=== PATIENT | female | born 1950 | race Caucasian/White ===

== ENCOUNTER 2019-10-23 08:36 | Outpatient (CLI) | payer MEDICARE ==
[~2019-10-23 08:36] MED LIST: HYDR-4353 PO
== END 2019-10-23 10:20 | disposition home or self-care (01) ==
LOC: WOUND CARE 08:36 → EDSTATUS 11:20
PROVIDERS: ATTEND Nurse Practitioner
DX: T81.89XA Other complications of procedures, not elsewhere classified, initial encounter (principal); L98.492 Non-pressure chronic ulcer of skin of other sites with fat layer exposed; K43.5 Parastomal hernia without obstruction or gangrene; E66.9 Obesity, unspecified; Z79.899 Other long term (current) drug therapy; Z96.641 Presence of right artificial hip joint; M16.4 Bilateral post-traumatic osteoarthritis of hip; Z85.038 Personal history of other malignant neoplasm of large intestine; Z68.29 Body mass index [BMI] 29.0-29.9, adult; Z85.048 Personal history of other malignant neoplasm of rectum, rectosigmoid junction, and anus; Z98.890 Other specified postprocedural states; Y92.89 Other specified places as the place of occurrence of the external cause; Y83.8 Other surgical procedures as the cause of abnormal reaction of the patient, or of later complication, without mention of misadventure at the time of the procedure
CPT/HCPCS: G0463

== ENCOUNTER 2019-10-26 11:49 | Day surgery (SDC) | payer MEDICARE | END 2019-10-26 12:15 | disposition home or self-care (01) | LOC: WOUND CARE 11:49 | PROVIDERS: ATTEND Nurse Practitioner | DX: T81.89XD Other complications of procedures, not elsewhere classified, subsequent encounter (principal); L98.492 Non-pressure chronic ulcer of skin of other sites with fat layer exposed; K43.5 Parastomal hernia without obstruction or gangrene; E66.9 Obesity, unspecified; Z79.899 Other long term (current) drug therapy; Z96.641 Presence of right artificial hip joint; M16.4 Bilateral post-traumatic osteoarthritis of hip; Z85.038 Personal history of other malignant neoplasm of large intestine; Z68.29 Body mass index [BMI] 29.0-29.9, adult; Z85.048 Personal history of other malignant neoplasm of rectum, rectosigmoid junction, and anus; Z98.890 Other specified postprocedural states; Y83.8 Other surgical procedures as the cause of abnormal reaction of the patient, or of later complication, without mention of misadventure at the time of the procedure | CPT/HCPCS: 87070; 87075; 87102; 97597 ==

== ENCOUNTER 2019-10-27 10:30 | Day surgery (SDC) | payer MEDICARE ==
[2019-10-27] MEDS ORDERED: LIDOcaine 2% 5ml jelly ONE (10:46)
== END 2019-10-27 11:32 | disposition home or self-care (01) ==
LOC: WOUND CARE 10:30
PROVIDERS: ATTEND Nurse Practitioner Family
DX: T81.89XD Other complications of procedures, not elsewhere classified, subsequent encounter (principal); L98.492 Non-pressure chronic ulcer of skin of other sites with fat layer exposed; K43.5 Parastomal hernia without obstruction or gangrene; E66.9 Obesity, unspecified; Z79.899 Other long term (current) drug therapy; Z96.641 Presence of right artificial hip joint; M16.4 Bilateral post-traumatic osteoarthritis of hip; Z85.038 Personal history of other malignant neoplasm of large intestine; Z68.29 Body mass index [BMI] 29.0-29.9, adult; Z85.048 Personal history of other malignant neoplasm of rectum, rectosigmoid junction, and anus; Z98.890 Other specified postprocedural states; Y83.8 Other surgical procedures as the cause of abnormal reaction of the patient, or of later complication, without mention of misadventure at the time of the procedure
CPT/HCPCS: 97597

== ENCOUNTER 2019-10-30 09:24 | Outpatient (CLI) | payer MEDICARE ==
[2019-10-30] MEDS ORDERED: LIDOcaine 2% 5ml jelly ONE (09:43)
== END 2019-10-30 10:50 | disposition home or self-care (01) ==
LOC: WOUND CARE 09:24 → EDSTATUS 09:40 → WOUND CARE 10:50
PROVIDERS: ATTEND Nurse Practitioner
DX: T81.89XD Other complications of procedures, not elsewhere classified, subsequent encounter (principal); L98.492 Non-pressure chronic ulcer of skin of other sites with fat layer exposed; K43.5 Parastomal hernia without obstruction or gangrene; E66.9 Obesity, unspecified; Z79.899 Other long term (current) drug therapy; Z96.641 Presence of right artificial hip joint; M16.4 Bilateral post-traumatic osteoarthritis of hip; Z85.038 Personal history of other malignant neoplasm of large intestine; Z68.29 Body mass index [BMI] 29.0-29.9, adult; Z85.048 Personal history of other malignant neoplasm of rectum, rectosigmoid junction, and anus; Z98.890 Other specified postprocedural states; Y83.8 Other surgical procedures as the cause of abnormal reaction of the patient, or of later complication, without mention of misadventure at the time of the procedure
CPT/HCPCS: G0463

== ENCOUNTER 2019-11-05 09:45 | Outpatient (CLI) | payer MEDICARE ==
[2019-11-05] MEDS ORDERED: LIDOcaine 2% 5ml jelly ONE (10:01)
== END 2019-11-05 10:37 | disposition home or self-care (01) ==
LOC: WOUND CARE 09:45 → EDSTATUS 10:00 → WOUND CARE 10:37
PROVIDERS: ATTEND Nurse Practitioner
DX: T81.89XD Other complications of procedures, not elsewhere classified, subsequent encounter (principal); L98.492 Non-pressure chronic ulcer of skin of other sites with fat layer exposed; K43.5 Parastomal hernia without obstruction or gangrene; M16.4 Bilateral post-traumatic osteoarthritis of hip; E66.9 Obesity, unspecified; Z79.899 Other long term (current) drug therapy; Z96.641 Presence of right artificial hip joint; Z85.038 Personal history of other malignant neoplasm of large intestine; Z68.26 Body mass index [BMI] 26.0-26.9, adult; Z85.048 Personal history of other malignant neoplasm of rectum, rectosigmoid junction, and anus; Z98.890 Other specified postprocedural states; Z93.3 Colostomy status; Y83.8 Other surgical procedures as the cause of abnormal reaction of the patient, or of later complication, without mention of misadventure at the time of the procedure
CPT/HCPCS: G0463

== ENCOUNTER 2019-11-12 09:55 | Day surgery (SDC) | payer MEDICARE ==
[2019-11-12] MEDS ORDERED: LIDOcaine 2% 5ml jelly ONE (10:01)
== END 2019-11-12 10:39 | disposition home or self-care (01) ==
LOC: WOUND CARE 09:55
PROVIDERS: ATTEND Nurse Practitioner
DX: L98.492 Non-pressure chronic ulcer of skin of other sites with fat layer exposed (principal); K43.5 Parastomal hernia without obstruction or gangrene
CPT/HCPCS: G0463

== ENCOUNTER 2019-11-19 08:37 | Day surgery (SDC) | payer MEDICARE | END 2019-11-19 09:47 | disposition home or self-care (01) | LOC: WOUND CARE 08:37 | PROVIDERS: ATTEND Nurse Practitioner | DX: T81.89XD Other complications of procedures, not elsewhere classified, subsequent encounter (principal); L98.492 Non-pressure chronic ulcer of skin of other sites with fat layer exposed; K43.5 Parastomal hernia without obstruction or gangrene; E66.9 Obesity, unspecified; M16.4 Bilateral post-traumatic osteoarthritis of hip; Z79.899 Other long term (current) drug therapy; Z96.641 Presence of right artificial hip joint; Z85.038 Personal history of other malignant neoplasm of large intestine; Z68.29 Body mass index [BMI] 29.0-29.9, adult; Z85.048 Personal history of other malignant neoplasm of rectum, rectosigmoid junction, and anus; Z98.890 Other specified postprocedural states; Z93.3 Colostomy status; Y83.8 Other surgical procedures as the cause of abnormal reaction of the patient, or of later complication, without mention of misadventure at the time of the procedure | CPT/HCPCS: 97597 ==

== ENCOUNTER 2019-11-26 08:40 | Outpatient (CLI) | payer MEDICARE | END 2019-11-26 09:39 | disposition home or self-care (01) | LOC: WOUND CARE 08:40 → EDSTATUS 09:00 → WOUND CARE 09:39 | PROVIDERS: ATTEND Nurse Practitioner | DX: T81.89XD Other complications of procedures, not elsewhere classified, subsequent encounter (principal); L98.492 Non-pressure chronic ulcer of skin of other sites with fat layer exposed; K43.5 Parastomal hernia without obstruction or gangrene; E66.9 Obesity, unspecified; M16.4 Bilateral post-traumatic osteoarthritis of hip; Z93.3 Colostomy status; Z79.899 Other long term (current) drug therapy; Z98.890 Other specified postprocedural states; Z85.038 Personal history of other malignant neoplasm of large intestine; Z96.641 Presence of right artificial hip joint; Z68.26 Body mass index [BMI] 26.0-26.9, adult; Y83.8 Other surgical procedures as the cause of abnormal reaction of the patient, or of later complication, without mention of misadventure at the time of the procedure | CPT/HCPCS: G0463 ==

== ENCOUNTER 2019-12-10 13:40 | Day surgery (SDC) | payer MEDICARE ==
[2019-12-10] MEDS ORDERED: LIDOcaine 1% w/epiNEPHrine 1:200,000 30ml vial ONE (14:43)
== END 2019-12-10 15:18 | disposition home or self-care (01) ==
LOC: WOUND CARE 13:40
PROVIDERS: ATTEND Nurse Practitioner
DX: T81.89XD Other complications of procedures, not elsewhere classified, subsequent encounter (principal); L98.492 Non-pressure chronic ulcer of skin of other sites with fat layer exposed; L02.211 Cutaneous abscess of abdominal wall; K43.5 Parastomal hernia without obstruction or gangrene; E66.9 Obesity, unspecified; M16.4 Bilateral post-traumatic osteoarthritis of hip; Z79.899 Other long term (current) drug therapy; Z96.641 Presence of right artificial hip joint; Z85.038 Personal history of other malignant neoplasm of large intestine; Z68.29 Body mass index [BMI] 29.0-29.9, adult; Z85.048 Personal history of other malignant neoplasm of rectum, rectosigmoid junction, and anus; Z98.890 Other specified postprocedural states; Z93.3 Colostomy status; Y83.8 Other surgical procedures as the cause of abnormal reaction of the patient, or of later complication, without mention of misadventure at the time of the procedure
CPT/HCPCS: 10140; 87070; 87075; 87102

== ENCOUNTER 2019-12-11 08:30 | Day surgery (SDC) | payer MEDICARE ==
[2019-12-11] MEDS ORDERED: LIDOcaine 2% 5ml jelly ONE (08:56)
== END 2019-12-11 09:50 | disposition home or self-care (01) ==
LOC: WOUND CARE 08:30
PROVIDERS: ATTEND Nurse Practitioner
DX: T81.89XA Other complications of procedures, not elsewhere classified, initial encounter (principal); L98.492 Non-pressure chronic ulcer of skin of other sites with fat layer exposed; L02.211 Cutaneous abscess of abdominal wall; K43.5 Parastomal hernia without obstruction or gangrene; E66.9 Obesity, unspecified; M16.4 Bilateral post-traumatic osteoarthritis of hip; Z79.899 Other long term (current) drug therapy; Z96.641 Presence of right artificial hip joint; Z85.038 Personal history of other malignant neoplasm of large intestine; Z85.048 Personal history of other malignant neoplasm of rectum, rectosigmoid junction, and anus; Z98.890 Other specified postprocedural states; Z68.27 Body mass index [BMI] 27.0-27.9, adult; Z93.3 Colostomy status; Y83.8 Other surgical procedures as the cause of abnormal reaction of the patient, or of later complication, without mention of misadventure at the time of the procedure; Y92.89 Other specified places as the place of occurrence of the external cause
CPT/HCPCS: 97597

== ENCOUNTER 2019-12-15 08:36 | Day surgery (SDC) | payer MEDICARE | END 2019-12-15 09:04 | disposition home or self-care (01) | LOC: WOUND CARE 08:36 | PROVIDERS: ATTEND Nurse Practitioner | DX: T81.89XD Other complications of procedures, not elsewhere classified, subsequent encounter (principal); L98.492 Non-pressure chronic ulcer of skin of other sites with fat layer exposed; L02.211 Cutaneous abscess of abdominal wall; K43.5 Parastomal hernia without obstruction or gangrene; E66.9 Obesity, unspecified; M16.4 Bilateral post-traumatic osteoarthritis of hip; Z79.899 Other long term (current) drug therapy; Z96.641 Presence of right artificial hip joint; Z85.038 Personal history of other malignant neoplasm of large intestine; Z68.29 Body mass index [BMI] 29.0-29.9, adult; Z85.048 Personal history of other malignant neoplasm of rectum, rectosigmoid junction, and anus; Z98.890 Other specified postprocedural states; Z93.3 Colostomy status; Y83.8 Other surgical procedures as the cause of abnormal reaction of the patient, or of later complication, without mention of misadventure at the time of the procedure | CPT/HCPCS: 97597 ==

== ENCOUNTER 2019-12-22 08:00 | Day surgery (SDC) | payer MEDICARE ==
[2019-12-22] MEDS ORDERED: LIDOcaine 2% 5ml jelly ONE (08:23)
== END 2019-12-22 08:30 | disposition home or self-care (01) ==
LOC: WOUND CARE 08:00
PROVIDERS: ATTEND Nurse Practitioner
DX: T81.89XD Other complications of procedures, not elsewhere classified, subsequent encounter (principal); L98.492 Non-pressure chronic ulcer of skin of other sites with fat layer exposed; L02.211 Cutaneous abscess of abdominal wall; K43.5 Parastomal hernia without obstruction or gangrene; E66.9 Obesity, unspecified; M16.4 Bilateral post-traumatic osteoarthritis of hip; Z79.899 Other long term (current) drug therapy; Z96.641 Presence of right artificial hip joint; Z85.038 Personal history of other malignant neoplasm of large intestine; Z68.29 Body mass index [BMI] 29.0-29.9, adult; Z85.048 Personal history of other malignant neoplasm of rectum, rectosigmoid junction, and anus; Z98.890 Other specified postprocedural states; Z93.3 Colostomy status; Y83.8 Other surgical procedures as the cause of abnormal reaction of the patient, or of later complication, without mention of misadventure at the time of the procedure
CPT/HCPCS: 97597

== ENCOUNTER 2019-12-29 07:45 | Day surgery (SDC) | payer MEDICARE ==
[2019-12-29] MEDS ORDERED: LIDOcaine 2% 5ml jelly ONE (08:38)
== END 2019-12-29 08:59 | disposition home or self-care (01) ==
LOC: WOUND CARE 07:45
PROVIDERS: ATTEND Nurse Practitioner
DX: T81.89XD Other complications of procedures, not elsewhere classified, subsequent encounter (principal); L98.492 Non-pressure chronic ulcer of skin of other sites with fat layer exposed; L02.211 Cutaneous abscess of abdominal wall; K46.9 Unspecified abdominal hernia without obstruction or gangrene; K43.5 Parastomal hernia without obstruction or gangrene; E66.9 Obesity, unspecified; M16.4 Bilateral post-traumatic osteoarthritis of hip; Z79.899 Other long term (current) drug therapy; Z96.641 Presence of right artificial hip joint; Z85.038 Personal history of other malignant neoplasm of large intestine; Z68.29 Body mass index [BMI] 29.0-29.9, adult; Z85.048 Personal history of other malignant neoplasm of rectum, rectosigmoid junction, and anus; Z98.890 Other specified postprocedural states; Z93.3 Colostomy status; Y83.8 Other surgical procedures as the cause of abnormal reaction of the patient, or of later complication, without mention of misadventure at the time of the procedure
CPT/HCPCS: 97597

== ENCOUNTER 2020-01-05 07:45 | Day surgery (SDC) | payer MEDICARE ==
[2020-01-05] MEDS ORDERED: LIDOcaine 2% 5ml jelly ONE (08:37)
== END 2020-01-05 10:35 | disposition home or self-care (01) ==
LOC: WOUND CARE 07:45
PROVIDERS: ATTEND Nurse Practitioner
DX: T81.89XD Other complications of procedures, not elsewhere classified, subsequent encounter (principal); L98.492 Non-pressure chronic ulcer of skin of other sites with fat layer exposed; L02.211 Cutaneous abscess of abdominal wall; K46.9 Unspecified abdominal hernia without obstruction or gangrene; K43.5 Parastomal hernia without obstruction or gangrene; E66.9 Obesity, unspecified; M16.4 Bilateral post-traumatic osteoarthritis of hip; Z79.899 Other long term (current) drug therapy; Z96.641 Presence of right artificial hip joint; Z85.038 Personal history of other malignant neoplasm of large intestine; Z68.29 Body mass index [BMI] 29.0-29.9, adult; Z85.048 Personal history of other malignant neoplasm of rectum, rectosigmoid junction, and anus; Z98.890 Other specified postprocedural states; Z93.3 Colostomy status; Y83.8 Other surgical procedures as the cause of abnormal reaction of the patient, or of later complication, without mention of misadventure at the time of the procedure
CPT/HCPCS: 97597

== ENCOUNTER 2020-01-08 13:00 | Outpatient (CLI) | payer MEDICARE | END 2020-01-08 14:47 | disposition home or self-care (01) | LOC: WOUND CARE 13:00 → EDSTATUS 13:20 → WOUND CARE 14:47 | PROVIDERS: ATTEND Nurse Practitioner | DX: T81.89XD Other complications of procedures, not elsewhere classified, subsequent encounter (principal); L98.492 Non-pressure chronic ulcer of skin of other sites with fat layer exposed; L02.211 Cutaneous abscess of abdominal wall; K46.9 Unspecified abdominal hernia without obstruction or gangrene; K43.5 Parastomal hernia without obstruction or gangrene; E66.9 Obesity, unspecified; M16.4 Bilateral post-traumatic osteoarthritis of hip; Z79.899 Other long term (current) drug therapy; Z96.641 Presence of right artificial hip joint; Z85.038 Personal history of other malignant neoplasm of large intestine; Z85.048 Personal history of other malignant neoplasm of rectum, rectosigmoid junction, and anus; Z68.27 Body mass index [BMI] 27.0-27.9, adult; Z98.890 Other specified postprocedural states; Z93.3 Colostomy status; Y83.8 Other surgical procedures as the cause of abnormal reaction of the patient, or of later complication, without mention of misadventure at the time of the procedure | CPT/HCPCS: G0463 ==

== ENCOUNTER 2020-01-14 08:00 | Day surgery (SDC) | payer MEDICARE ==
[2020-01-14] MEDS ORDERED: LIDOcaine 2% 5ml jelly ONE (08:44)
== END 2020-01-14 09:41 | disposition home or self-care (01) ==
LOC: WOUND CARE 08:00
PROVIDERS: ATTEND Nurse Practitioner
DX: T81.89XD Other complications of procedures, not elsewhere classified, subsequent encounter (principal); L98.492 Non-pressure chronic ulcer of skin of other sites with fat layer exposed; L02.211 Cutaneous abscess of abdominal wall; K46.9 Unspecified abdominal hernia without obstruction or gangrene; K43.5 Parastomal hernia without obstruction or gangrene; E66.9 Obesity, unspecified; M16.4 Bilateral post-traumatic osteoarthritis of hip; Z79.899 Other long term (current) drug therapy; Z96.641 Presence of right artificial hip joint; Z85.038 Personal history of other malignant neoplasm of large intestine; Z68.29 Body mass index [BMI] 29.0-29.9, adult; Z85.048 Personal history of other malignant neoplasm of rectum, rectosigmoid junction, and anus; Z98.890 Other specified postprocedural states; Z93.3 Colostomy status; Y83.8 Other surgical procedures as the cause of abnormal reaction of the patient, or of later complication, without mention of misadventure at the time of the procedure
CPT/HCPCS: 97597

== ENCOUNTER 2020-01-21 08:00 | Day surgery (SDC) | payer MEDICARE ==
[2020-01-21] MEDS ORDERED: LIDOcaine 2% 5ml jelly ONE (09:21)
== END 2020-01-21 10:15 | disposition home or self-care (01) ==
LOC: WOUND CARE 08:00
PROVIDERS: ATTEND Nurse Practitioner
DX: T81.89XD Other complications of procedures, not elsewhere classified, subsequent encounter (principal); L98.492 Non-pressure chronic ulcer of skin of other sites with fat layer exposed; L02.211 Cutaneous abscess of abdominal wall; K46.9 Unspecified abdominal hernia without obstruction or gangrene; K43.5 Parastomal hernia without obstruction or gangrene; E66.9 Obesity, unspecified; M16.4 Bilateral post-traumatic osteoarthritis of hip; Z79.899 Other long term (current) drug therapy; Z96.641 Presence of right artificial hip joint; Z85.038 Personal history of other malignant neoplasm of large intestine; Z68.29 Body mass index [BMI] 29.0-29.9, adult; Z85.048 Personal history of other malignant neoplasm of rectum, rectosigmoid junction, and anus; Z98.890 Other specified postprocedural states; Z93.3 Colostomy status; Y83.8 Other surgical procedures as the cause of abnormal reaction of the patient, or of later complication, without mention of misadventure at the time of the procedure
CPT/HCPCS: 36416; 97597

== ENCOUNTER 2020-01-28 08:00 | Day surgery (SDC) | payer MEDICARE ==
[2020-01-28] MEDS ORDERED: LIDOcaine 2% 5ml jelly ONE (08:55)
== END 2020-01-28 09:41 | disposition home or self-care (01) ==
LOC: WOUND CARE 08:00
PROVIDERS: ATTEND Nurse Practitioner
DX: T81.89XD Other complications of procedures, not elsewhere classified, subsequent encounter (principal); L98.492 Non-pressure chronic ulcer of skin of other sites with fat layer exposed; L02.211 Cutaneous abscess of abdominal wall; K46.9 Unspecified abdominal hernia without obstruction or gangrene; K43.5 Parastomal hernia without obstruction or gangrene; E66.9 Obesity, unspecified; M16.4 Bilateral post-traumatic osteoarthritis of hip; Z79.899 Other long term (current) drug therapy; Z96.641 Presence of right artificial hip joint; Z85.038 Personal history of other malignant neoplasm of large intestine; Z68.29 Body mass index [BMI] 29.0-29.9, adult; Z85.048 Personal history of other malignant neoplasm of rectum, rectosigmoid junction, and anus; Z98.890 Other specified postprocedural states; Z93.3 Colostomy status; Y83.8 Other surgical procedures as the cause of abnormal reaction of the patient, or of later complication, without mention of misadventure at the time of the procedure
CPT/HCPCS: 97597

== ENCOUNTER 2020-02-04 08:15 | Day surgery (SDC) | payer MEDICARE ==
[2020-02-04] MEDS ORDERED: LIDOcaine 2% 5ml jelly ONE (08:41)
== END 2020-02-04 09:40 | disposition home or self-care (01) ==
LOC: WOUND CARE 08:15
PROVIDERS: ATTEND Nurse Practitioner
DX: T81.89XD Other complications of procedures, not elsewhere classified, subsequent encounter (principal); L98.492 Non-pressure chronic ulcer of skin of other sites with fat layer exposed; L02.211 Cutaneous abscess of abdominal wall; L91.8 Other hypertrophic disorders of the skin; K46.9 Unspecified abdominal hernia without obstruction or gangrene; K43.5 Parastomal hernia without obstruction or gangrene; E66.9 Obesity, unspecified; M16.4 Bilateral post-traumatic osteoarthritis of hip; Z79.899 Other long term (current) drug therapy; Z96.641 Presence of right artificial hip joint; Z85.038 Personal history of other malignant neoplasm of large intestine; Z68.29 Body mass index [BMI] 29.0-29.9, adult; Z85.048 Personal history of other malignant neoplasm of rectum, rectosigmoid junction, and anus; Z98.890 Other specified postprocedural states; Z93.3 Colostomy status; Y83.8 Other surgical procedures as the cause of abnormal reaction of the patient, or of later complication, without mention of misadventure at the time of the procedure
CPT/HCPCS: 97597

== ENCOUNTER 2020-02-11 08:00 | Day surgery (SDC) | payer MEDICARE ==
[2020-02-11] MEDS ORDERED: LIDOcaine 2% 5ml jelly ONE (08:19)
== END 2020-02-11 09:20 | disposition home or self-care (01) ==
LOC: WOUND CARE 08:00
PROVIDERS: ATTEND Nurse Practitioner
DX: T81.89XD Other complications of procedures, not elsewhere classified, subsequent encounter (principal); L98.492 Non-pressure chronic ulcer of skin of other sites with fat layer exposed; L02.211 Cutaneous abscess of abdominal wall; L91.8 Other hypertrophic disorders of the skin; K46.9 Unspecified abdominal hernia without obstruction or gangrene; K43.5 Parastomal hernia without obstruction or gangrene; E66.9 Obesity, unspecified; M16.4 Bilateral post-traumatic osteoarthritis of hip; Z79.899 Other long term (current) drug therapy; Z96.641 Presence of right artificial hip joint; Z85.038 Personal history of other malignant neoplasm of large intestine; Z68.29 Body mass index [BMI] 29.0-29.9, adult; Z85.048 Personal history of other malignant neoplasm of rectum, rectosigmoid junction, and anus; Z98.890 Other specified postprocedural states; Z93.3 Colostomy status; Y83.8 Other surgical procedures as the cause of abnormal reaction of the patient, or of later complication, without mention of misadventure at the time of the procedure
CPT/HCPCS: 97597

== ENCOUNTER 2020-03-03 08:20 | Day surgery (SDC) | payer MEDICARE ==
[2020-03-03] MEDS ORDERED: LIDOcaine 2% 5ml jelly ONE (08:40)
== END 2020-03-03 09:08 | disposition home or self-care (01) ==
LOC: WOUND CARE 08:20
PROVIDERS: ATTEND Nurse Practitioner
DX: T81.89XD Other complications of procedures, not elsewhere classified, subsequent encounter (principal); L98.492 Non-pressure chronic ulcer of skin of other sites with fat layer exposed; L02.211 Cutaneous abscess of abdominal wall; L91.8 Other hypertrophic disorders of the skin; K46.9 Unspecified abdominal hernia without obstruction or gangrene; K43.5 Parastomal hernia without obstruction or gangrene; E66.9 Obesity, unspecified; M19.90 Unspecified osteoarthritis, unspecified site; M16.4 Bilateral post-traumatic osteoarthritis of hip; Z79.899 Other long term (current) drug therapy; Z96.641 Presence of right artificial hip joint; Z85.038 Personal history of other malignant neoplasm of large intestine; Z68.29 Body mass index [BMI] 29.0-29.9, adult; Z85.048 Personal history of other malignant neoplasm of rectum, rectosigmoid junction, and anus; Z90.49 Acquired absence of other specified parts of digestive tract; Z98.890 Other specified postprocedural states; Z93.3 Colostomy status; Y83.8 Other surgical procedures as the cause of abnormal reaction of the patient, or of later complication, without mention of misadventure at the time of the procedure
CPT/HCPCS: 97597

== ENCOUNTER 2020-03-10 07:56 | Day surgery (SDC) | payer MEDICARE ==
[2020-03-10] MEDS ORDERED: LIDOcaine 2% 5ml jelly ONE (08:37)
== END 2020-03-10 09:00 | disposition home or self-care (01) ==
LOC: WOUND CARE 07:56
PROVIDERS: ATTEND Nurse Practitioner
DX: T81.89XD Other complications of procedures, not elsewhere classified, subsequent encounter (principal); L98.492 Non-pressure chronic ulcer of skin of other sites with fat layer exposed; L02.211 Cutaneous abscess of abdominal wall; L91.8 Other hypertrophic disorders of the skin; K46.9 Unspecified abdominal hernia without obstruction or gangrene; K43.5 Parastomal hernia without obstruction or gangrene; E66.9 Obesity, unspecified; M19.90 Unspecified osteoarthritis, unspecified site; M16.4 Bilateral post-traumatic osteoarthritis of hip; Z79.899 Other long term (current) drug therapy; Z96.641 Presence of right artificial hip joint; Z85.038 Personal history of other malignant neoplasm of large intestine; Z68.29 Body mass index [BMI] 29.0-29.9, adult; Z85.048 Personal history of other malignant neoplasm of rectum, rectosigmoid junction, and anus; Z90.49 Acquired absence of other specified parts of digestive tract; Z98.890 Other specified postprocedural states; Z93.3 Colostomy status; Y83.8 Other surgical procedures as the cause of abnormal reaction of the patient, or of later complication, without mention of misadventure at the time of the procedure
CPT/HCPCS: 97597

== ENCOUNTER 2020-03-15 11:00 | Day surgery (SDC) | payer MEDICARE | END 2020-03-15 13:16 | disposition home or self-care (01) | LOC: WOUND CARE 11:00 | PROVIDERS: ATTEND Nurse Practitioner | DX: T81.89XD Other complications of procedures, not elsewhere classified, subsequent encounter (principal); L98.492 Non-pressure chronic ulcer of skin of other sites with fat layer exposed; L02.211 Cutaneous abscess of abdominal wall; L91.8 Other hypertrophic disorders of the skin; K46.9 Unspecified abdominal hernia without obstruction or gangrene; K43.5 Parastomal hernia without obstruction or gangrene; E66.9 Obesity, unspecified; M19.90 Unspecified osteoarthritis, unspecified site; M16.4 Bilateral post-traumatic osteoarthritis of hip; Z79.899 Other long term (current) drug therapy; Z96.641 Presence of right artificial hip joint; Z85.038 Personal history of other malignant neoplasm of large intestine; Z68.29 Body mass index [BMI] 29.0-29.9, adult; Z85.048 Personal history of other malignant neoplasm of rectum, rectosigmoid junction, and anus; Z90.49 Acquired absence of other specified parts of digestive tract; Z98.890 Other specified postprocedural states; Z93.3 Colostomy status; Y83.8 Other surgical procedures as the cause of abnormal reaction of the patient, or of later complication, without mention of misadventure at the time of the procedure | CPT/HCPCS: 87070; 87075; 87102; G0463 ==

== ENCOUNTER → 2020-03-24 | Day surgery (SDC) | payer MEDICARE ==
[~2020-03-24] MED LIST changes: +LIDOcaine 2% 5ml jelly ONE
== END | disposition home or self-care (01) ==
LOC: WOUND CARE 07:56
PROVIDERS: ATTEND Nurse Practitioner
DX: T81.89XD Other complications of procedures, not elsewhere classified, subsequent encounter (principal); L98.492 Non-pressure chronic ulcer of skin of other sites with fat layer exposed; L02.211 Cutaneous abscess of abdominal wall; L91.8 Other hypertrophic disorders of the skin; K46.9 Unspecified abdominal hernia without obstruction or gangrene; K43.5 Parastomal hernia without obstruction or gangrene; E66.9 Obesity, unspecified; M19.90 Unspecified osteoarthritis, unspecified site; M16.4 Bilateral post-traumatic osteoarthritis of hip; Z79.899 Other long term (current) drug therapy; Z96.641 Presence of right artificial hip joint; Z85.038 Personal history of other malignant neoplasm of large intestine; Z68.29 Body mass index [BMI] 29.0-29.9, adult; Z85.048 Personal history of other malignant neoplasm of rectum, rectosigmoid junction, and anus; Z90.49 Acquired absence of other specified parts of digestive tract; Z98.890 Other specified postprocedural states; Z93.3 Colostomy status; Y83.8 Other surgical procedures as the cause of abnormal reaction of the patient, or of later complication, without mention of misadventure at the time of the procedure
CPT/HCPCS: 97597

== ENCOUNTER 2020-03-31 08:00 | Day surgery (SDC) | payer MEDICARE ==
[~2020-03-31 08:00] MED LIST changes: -LIDOcaine 2% 5ml jelly ONE
[2020-03-31] MEDS ORDERED: LIDOcaine 2% 5ml jelly ONE (08:14)
== END 2020-03-31 08:50 | disposition home or self-care (01) ==
LOC: WOUND CARE 08:00
PROVIDERS: ATTEND Nurse Practitioner
DX: T81.89XD Other complications of procedures, not elsewhere classified, subsequent encounter (principal); L98.492 Non-pressure chronic ulcer of skin of other sites with fat layer exposed; L02.211 Cutaneous abscess of abdominal wall; L91.8 Other hypertrophic disorders of the skin; K46.9 Unspecified abdominal hernia without obstruction or gangrene; K43.5 Parastomal hernia without obstruction or gangrene; E66.9 Obesity, unspecified; M19.90 Unspecified osteoarthritis, unspecified site; M16.4 Bilateral post-traumatic osteoarthritis of hip; Z79.899 Other long term (current) drug therapy; Z96.641 Presence of right artificial hip joint; Z85.038 Personal history of other malignant neoplasm of large intestine; Z68.29 Body mass index [BMI] 29.0-29.9, adult; Z85.048 Personal history of other malignant neoplasm of rectum, rectosigmoid junction, and anus; Z90.49 Acquired absence of other specified parts of digestive tract; Z98.890 Other specified postprocedural states; Z93.3 Colostomy status; Y83.8 Other surgical procedures as the cause of abnormal reaction of the patient, or of later complication, without mention of misadventure at the time of the procedure
CPT/HCPCS: 97597